=== PATIENT | male | born 1980 | race Caucasian/White ===

== ENCOUNTER 2018-04-23 09:06 | Observation (INO) ==
--- NOTE | 2018-04-23 09:45 | DI ---
EXAM: Chest two view, frontal and lateral views. HISTORY: Chest pain. COMPARISON: None available. FINDINGS: The heart size is normal. There is no pulmonary vascular congestion. The lungs are clear . No pleural effusion or pneumothorax is seen. No acute osseous abnormality identified. Old right fourth rib fracture noted. IMPRESSION: No acute cardiopulmonary process.
--- NOTE | 2018-04-23 10:32 | ED.PDOC ---
General ED Provider: Dr. VIKRAM GLASS Chief Complaint: Respiratory Complaint Stated Complaint: chest pain Time Seen by Physician: 09:07 (nurse present at all times ) Mode of Arrival: Walk-In Information Source: Patient Exam Limitations: No limitations Nursing and Triage Documentation Reviewed and Agree: Yes Does patient meet sepsis criteria?: Yes If yes, has appropriate treatment been initiated?: No System Inflammatory Response Syndrome: Not Applicable Sepsis Protocol: For patient's 13 years and over: Temp is 96.8 and below OR 101 and greater Pulse >90 BPM Resp >20/minute Acutely Altered Mental Status Are patient's symptoms suggestive of a new infection, such as: -Pneumonia -Skin, Soft Tissue -Endocarditis -UTI -Bone, Joint Infection -Implantable Device -Acute Abdominal Infection -Wound Infection -Meningitis -Blood Stream Catheter Infection -Unknown Cardiovascular Complaint Exam - Chest Pain Complaint/Exam Onset: Gradual Duration: 4 hours ago, Symptoms Are: Resolved Timing: Intermittent Length of Chest Pain Episodes: 1 hr Initial Severity: Mild Current Severity: Mild Location: Reports: Midsternal Pain Radiates: Reports: None Character: Reports: Aching Aggravating: Reports: None Alleviating: Reports: None Associated Signs and Symptoms: Denies: Diaphoresis, Nausea, Vomiting, Fever, Palpitations, Cough, Hemoptysis, Back pain, Abdominal pain, Dizziness, Short of air, Calf pain, Calf swelling Related History: Reports: Similar episode Related Surgical History: Reports: None History of Healthcare-Acquired Pneumonia: Reports: No AMI/ACS Risk Factors: Reports: None TAD Risk Factors: Reports: None Pulmonary Embolism Risk Factors: Reports: None Prior Care for this Complaint: No Recent Stress Test: No Recent Echo/LV Function: No JVD Present: No Subcutaneous Emphysema Present: No Diminshed Breath Sounds: No Reproducible Chest Wall Pain: No Bilateral Pulses Present: No (chews tobacco) If Risk Factors for AMI/ACS Consider: EKG, Cardiac Enzymes Documents Reviewed: Labs, EKG Care and Dx Studies Discussed With: PCP Differential Diagnoses: Acute TX (pain is different from GERD PAIN) Quality Indicators For Acute TX or Cardiac Chest Pain: EKG in 10min. Review of Systems - Review Of Systems Constitutional: Reports: No symptoms Eyes: Reports: No symptoms Ears, Nose, Mouth, Throat: Reports: No symptoms Respiratory: Reports: No symptoms Cardiac: Reports: Chest pain GI: Reports: No symptoms : Reports: No symptoms Musculoskeletal: Reports: No symptoms Skin: Reports: No symptoms Neurological: Reports: No symptoms Endocrine: Reports: No symptoms Hematologic/Lymphatic: Reports: No symptoms All Other Systems: Reviewed and Negative Past Medical History - Past Medical History Previously Healthy: Yes Endocrine: Reports: None Cardiovascular: Reports: None Respiratory: Reports: None Hematological: Reports: None Gastrointestinal: Reports: None Genitourinary: Reports: None Neuro/Psych: Reports: None Musculoskeletal: Reports: None Cancer: Reports: None - Surgical History General Surgical History: Reports: None - Family History Family History: Reports: None - Social History Smoking Status: Chews tobacco Hx Substance Use: No Alcohol Screening: Occasionally Physical Exam - Physical Exam Appearance: Well-appearing, No pain distress, Well-nourished Eyes: HEAVENLY, EOMI, Conjunctiva clear ENT: Ears normal, Nose normal, Oropharynx normal Respiratory: Airway patent, Breath sounds clear, Breath sounds equal, Respirations nonlabored Cardiovascular: RRR, Pulses normal, No rub, No murmur GI/: Soft, Nontender, No masses, Bowel sounds normal, No Organomegaly Musculoskeletal: Normal strength, ROM intact, No edema, No calf tenderness Skin: Warm, Dry, Normal color Neurological: Sensation intact, Motor intact, Reflexes intact, Cranial nerves intact, Alert, Oriented Psychiatric: Affect appropriate, Mood appropriate Physician Notification - Case Discussed Physician Notified: RAULITO Time of Notification: 10:34 Admit To: Inpatient Critical Care Note - Critical Care Note Total Time (mins): 0 Course - Course Hematology/Chemistry: 04/23/18 09:20 04/23/18 09:20 Orders, Labs, Meds: Lab Review 04/23/18 04/23/18 04/23/18 09:20 09:20 09:20 WBC 5.79 RBC 5.20 Hgb 15.0 Hct 43.9 MCV 84.4 MCH 28.8 MCHC 34.2 RDW Coeff of [place] 12.3 Plt Count 199 Immature Gran % (Auto) 0.2 Neut % (Auto) 60.9 Lymph % (Auto) 28.5 [place] % (Auto) 8.6 Eos % (Auto) 0.9 Baso % (Auto) 0.9 Immature Gran # (Auto) 0.0 Neut # (Auto) 3.5 Lymph # (Auto) 1.7 [place] # (Auto) 0.5 Eos # (Auto) 0.1 Baso # (Auto) 0.1 PT 9.9 INR 0.99 APTT 27.3 Sodium 138 Potassium 4.1 Chloride 107 Carbon Dioxide 24 Anion Gap 11.1 BUN 13 Creatinine 1.12 H Estimated GFR (MDRD) 74.00 BUN/Creatinine Ratio 11.60 Glucose 114 H Hemoglobin A1c Calcium 10.1 Total Bilirubin 0.5 AST 21 ALT 24 Alkaline Phosphatase 57 Total Creatine Kinase 105 Troponin I 0.0170 Total Protein 8.1 Albumin 4.4 Globulin 3.7 Albumin/Globulin Ratio 1.19 Triglycerides Cholesterol LDL Cholesterol, Calc VLDL Cholesterol HDL Cholesterol Cholesterol/HDL Ratio TSH Urine Opiates Screen Ur Oxycodone Screen Urine Methadone Screen Ur Propoxyphene Screen Ur Barbiturates Screen U Tricyclic Antidepress Ur Phencyclidine Scrn Ur Amphetamine Screen U Methamphetamines Scrn U Benzodiazepines Scrn Urine Cocaine Screen U Cannabinoids Screen 04/23/18 04/23/18 04/23/18 09:20 09:20 09:30 WBC RBC Hgb Hct MCV MCH MCHC RDW Coeff of [place] Plt Count Immature Gran % (Auto) Neut % (Auto) Lymph % (Auto) [place] % (Auto) Eos % (Auto) Baso % (Auto) Immature Gran # (Auto) Neut # (Auto) Lymph # (Auto) [place] # (Auto) Eos # (Auto) Baso # (Auto) PT INR APTT Sodium Potassium Chloride Carbon Dioxide Anion Gap BUN Creatinine Estimated GFR (MDRD) BUN/Creatinine Ratio Glucose Hemoglobin A1c 5.0 Calcium Total Bilirubin AST ALT Alkaline Phosphatase Total Creatine Kinase Troponin I Total Protein Albumin Globulin Albumin/Globulin Ratio Triglycerides 61 Cholesterol 190 LDL Cholesterol, Calc 131 VLDL Cholesterol 12 HDL Cholesterol 47 Cholesterol/HDL Ratio 4.0 L TSH 2.162 Urine Opiates Screen Negative Ur Oxycodone Screen Negative Urine Methadone Screen Negative Ur Propoxyphene Screen Negative Ur Barbiturates Screen Negative U Tricyclic Antidepress Negative Ur Phencyclidine Scrn Negative Ur Amphetamine Screen Negative U Methamphetamines Scrn Negative U Benzodiazepines Scrn Negative Urine Cocaine Screen Negative U Cannabinoids Screen Negative Orders Category Date Time Status EKG-(ED ONLY) Stat CARDIO 04/23/18 09:12 Completed EKG-(IP & OP ONLY) DAILY CARDIO 04/24/18 06:00 Ordered EKG-(IP & OP ONLY) DAILY CARDIO 04/25/18 06:00 Ordered EKG-(IP & OP ONLY) DAILY CARDIO 04/26/18 06:00 Ordered INTAKE & OUTPUT Q8HR CARE 04/23/18 10:36 Active VITAL SIGNS Q8HR CARE 04/23/18 10:36 Active REGULAR DIET DIETARY 04/23/18 Lunch Ordered CBC W/ AUTO DIFF DAILY@0600 LAB 04/24/18 06:00 Ordered CBC W/ AUTO DIFF DAILY@0600 LAB 04/25/18 06:00 Ordered CBC W/ AUTO DIFF Stat LAB 04/23/18 09:20 Completed COMPREHENSIVE METABOLIC PANEL DAILY@0600 LAB 04/24/18 06:00 Ordered COMPREHENSIVE METABOLIC PANEL DAILY@0600 LAB 04/25/18 06:00 Ordered COMPREHENSIVE METABOLIC PANEL Stat LAB 04/23/18 09:20 Completed CREATINE KINASE Q8H LAB 04/23/18 16:45 Ordered CREATINE KINASE Q8H LAB 04/24/18 00:45 Ordered CREATINE KINASE Stat LAB 04/23/18 09:20 Completed PARTIAL THROMBOPLASTIN TIME Stat LAB 04/23/18 09:20 Completed PT WITH INR Stat LAB 04/23/18 09:20 Completed TROPONIN I Q8H LAB 04/23/18 16:45 Ordered TROPONIN I Q8H LAB 04/24/18 00:45 Ordered TROPONIN I Stat LAB 04/23/18 09:20 Completed URINE DRUG SCREEN (RAPID FOR ED) [DRUG SCREEN, URINE, LAB 04/23/18 09:30 Completed RAPID] Stat Sodium Chloride 0.9% [Sodium Chloride] 1,000 ml MEDS 04/23/18 11:00 Discontinued IV 75 mls/hr CHEST, 2 VIEWS PA & LAT Stat RADS 04/23/18 09:19 Completed Medications Generic Name Dose Route Start Last Admin Trade Name Freq PRN Reason Stop Dose Admin Sodium Chloride 1,000 mls @ 50 mls/hr 04/23/18 13:00 04/23/18 14:42 Sodium Chloride IV 50 mls/hr .Q20H NICHOLE Administration Pantoprazole Sodium 40 mg 04/23/18 12:56 04/23/18 14:42 Protonix PO 40 mg QDAC NICHOLE Administration Sucralfate 1 gm 04/23/18 17:00 Carafate PO ACHS NICHOLE Discontinued Medications Generic Name Dose Route Start Last Admin Trade Name Freq PRN Reason Stop Dose Admin Sodium Chloride 1,000 mls @ 75 mls/hr 04/23/18 11:00 04/23/18 14:42 Sodium Chloride IV Not Given .[id number] NICHOLE Vital Signs: Temp Pulse Resp BP Pulse Ox 04/23/18 09:07 98.2 F 92 H 18 157/93 H 98 CONNOR Risk Score CONNOR Risk Score: Risk Score Odds of by 30D 0 0.1 (0.1-0.2) 1 0.3 (0.2-0.3) 2 0.4 (0.3-0.5) 3 0.7 (0.6-0.9) 4 1.2 (1.0-1.5) 5 2.2 (1.9-2.6) 6 3.0 (2.5-3.6) 7 4.8 (3.8-6.1) Departure - Departure Time of Disposition: 10:33 Disposition: ADMITTED INPATIENT Discharge Problem: Chest pain Qualifiers: Chest pain type: unspecified Qualified Code(s): R07.9 - Chest pain, unspecified Condition: Good Pt referred to PMD for follow-up: Yes IPMP verified?: No Allergies/Adverse Reactions: Allergies amoxicillin Adverse Reaction (Verified 04/23/18 09:16) Home Medications: Ambulatory Orders 1 [No Reported Medications] 04/23/18 Disposition Discussed With: Patient
[2018-04-23] MEDS ORDERED: SODIUM CHLORIDE 1,000 ML IV SCH (11:00)
[2018-04-23 11:53] VITALS: BMI 28.1
[2018-04-23] MEDS: PROTONIX PO SCH (14:42)
[2018-04-23] MEDS: SODIUM CHLORIDE 1,000 ML IV SCH (14:42)
--- NOTE | 2018-04-23 14:52 | STRESSECHO ---
Date of Test: 04/23/18 Ordering Physician: DR. 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, HX HEART MURMUR CHILD Height: 67" Weight: 180 LBS Current Medications: NO MEDICATIONS Physical Findings: S1, S2, NO S3 Resting EKG: SINUS RHYTHM / NO ACUTE CHANGES Target Heart Rate: 155/183 S-T SEGMENT STAGE MPH/GRADE HEART RATE BPM BLOOD PRESSURE MMHG RHYTHM +/- ELEVATION DEPRESSION SYMPTOMS,COMMENTS AT REST 75 138/84 SR X NONE 1 1.7/10% 100 158/72 SR X NONE 2 2.5/12% 114 160/72 SR X NONE 3 3.4/14% 146 166/76 SR X NONE 4 4.2/16% 5 5.0/18% Immediately After 156 SR X FATIGUE Minutes Post Exercise 5:00 85 140/88 SR X NO COMMENTS Minutes Post Exercise DURATION OF EXERCISE: 9:37 MAXIMUM HEART RATE REACHED: 156 REASON FOR TERMINATION: FATIGUE 98% OXYGEN SATURATION WITH EXERCISE ON ROOM AIR METS 12.0 INTERPRETATION: 1. NO EVIDENCE OF ISCHEMIA BY ST-T WAVE 2. NO CHEST PAIN OR CHEST DISCOMFORT 3. BLOOD PRESSURE RESPONSE: NORMAL AT REST AND WITH EXERCISE 4. NO ARRHYTHMIAS GOOD EXERCISE TOLERANCE NORMAL LEFT VENTRICULAR CONTRACTILITY--RESTING AND POST EXERCISE MTDD
--- NOTE | 2018-04-23 14:56 | ECHOSTRESS ---
Date of Exam: 04/23/18 Ordering Physician: DR. DEMARCO CABEZAS Reason for Echo: CHEST PAIN, STRESS TEST--NO ISCHEMIA M-Mode Normal Adult Results LV Dimensions Normal Adult Results AoV Opening excursions >1.6 LVEDD-base- 3.5-5.8 Ao root dimensions 2.0-3.7 LVESD-base- 3.1-4.6 L. Atrium dimensions 1.9-3.8 Post. Wall thickness 0.8-1.1 IV septum (thickness) 0.7-1.2 Post. Wall excursion 0.72-1.3 Septal motion Systolic motion R. Ventricular cavity 1.5-2.0 LVEF 60% Paradoxical septal wall motion 2-D: NORMAL LEFT VENTRICULAR CONTRACTILITY--RESTING AND POST EXERCISE M-MODE: MV: AV: TV: PV: CHAMBER SIZE: WALL MOTION: NORMAL LEFT VENTRICULAR CONTRACTILITY--RESTING AND POST EXERCISE PERICARDIUM: INTERPRETATION: 1. NORMAL LEFT VENTRICULAR CONTRACTILITY--RESTING AND POST EXERCISE MTDD
[2018-04-23] MEDS: CARAFATE PO SCH ×2 (17:09→20:46)
[2018-04-24] MEDS: PROTONIX PO SCH (06:39)
[2018-04-24] MEDS: CARAFATE PO SCH ×2 (06:39→11:46)
[2018-04-24] MEDS: SODIUM CHLORIDE 1,000 ML IV SCH ×2 (10:10)
[2018-04-24 15:21] VITALS: BP 119/67; TEMP 98.4
--- NOTE | 2018-04-24 16:35 | PCM.HOSP ---
- Observation Care Discharge [id number] OBS Care Discharge (15581): 04/24 - Initial Observation Care [id number] High Complexity 70 Minutes (84939): 04/23
--- NOTE | 2018-04-26 14:57 | HP ---
DATE OF SERVICE: 04/23/18 CHIEF COMPLAINT: Chest pain. HISTORY OF PRESENT ILLNESS: This is a 37-year-old male who woke up in the middle of the night on 04/23 with chest pain, midsternal, heaviness, having some fast heartbeats and sweating. He was worried about it. He chews tobacco. He has a strong family history with mother dying at age 57 with coronary artery disease, sudden cardiac . He came to the emergency room and was seen by the ER physician. EKG was normal sinus. First set of cardiac enzymes negative. In view of the patient's high risk for coronary artery disease, the patient was admitted for observation to rule out acute coronary syndrome. REVIEW OF SYSTEMS: CONSTITUTIONAL: No fever, no chills. HEENT: Normal. ENDOCRINE: No weight gain; no weight loss. CVS: Chest pain. No PND, no orthopnea. No shortness of breath. No PND, no orthopnea. RESPIRATORY: No cough, no congestion. No hemoptysis. GI: Right upper quadrant pain. Nausea. No melena. : No hematuria. No polyuria. MUSCULOSKELETAL: Back pain. PSYCHIATRIC: Not anxious. No depression. No suicidal thoughts. No homicidal thoughts. SKIN: Intact, no open lesions. PAST MEDICAL HISTORY: Heart murmur History of pneumonia in 2017 GERD Chews tobacco PAST SURGICAL HISTORY: Skin graft as a child PERSONAL HISTORY: . Chews tobacco. No illicit drug use. FAMILY HISTORY: History of CA and diabetes MEDICATIONS: (HOME) None ALLERGIES: AMOXICILLIN PHYSICAL EXAMINATION: V/S: BP 105/61, respiratory rate 18, heart rate 65, temperature 97.7, saturation 98. HEENT: Atraumatic, normocephalic. No scleral icterus. Mucosa dry. NECK: Supple. No JVD, no bruit. No lymphadenopathy. No thyromegaly. HEART: S1, S2 normal. No murmur. No cyanosis or clubbing. No ascites. LUNGS: Clear to auscultation. No rales or rhonchi. ABDOMEN: Epigastric and right upper quadrant pain. Bowel sounds are active. No CVA tenderness. No rigidity or guarding. EXTREMITIES: No pedal edema. No cyanosis or clubbing MUSCULOSKELETAL: Normal joints, no swelling. NEUROLOGIC: The patient is awake and alert. SKIN: Intact; no open lesions. LYMPHATIC: No lymph nodes palpable. LABS: White count 5.79, hemoglobin 15.8, hematocrit 45.9, platelet count 199. Sodium 138, potassium 4.9, chloride 107, bicarb 24, BUN 13, creatinine 1.12, glucose 114. ASSESSMENT: 1. CHEST PAIN, RULE OUT ACS 2. ACID REFLUX 3. STRONG FAMILY HISTORY OF CORONARY ARTERY DISEASE PLAN: 1. Admit patient to observation. 2. Stress echo. 3. Echocardiogram. 4. TSH and lipids. 5. Will follow the patient in daily rounds. 6. Protonix. TIME SPENT: MORE THAN 65 minutes MTDD
--- NOTE | 2018-04-29 13:20 | DS ---
DATE OF SERVICE: 04/24/18 FINAL DIAGNOSIS: 1. Chest pain noncardiac 2. Right upper quadrant pain, will evaluate the gallbladder as outpatient 3. History of GERD 4. Family history of coronary artery disease, mother at age 57 DISCHARGE INSTRUCTIONS: Discharge the patient home. Followup with PMD. Lifestyle modification and diet discussed. MEDICATIONS AT DISCHARGE: None NEW PRESCRIPTIONS: None DIET INSTRUCTIONS: Cardiac and healthy ACTIVITY: As much as tolerated. DISEASE SPECIFIC EDUCATION: Chest pain Coronary artery disease Acid reflux Right upper quadrant pain and need for further evaluation for the gallbladder been discussed. HOSPITAL COURSE: The patient was admitted with the chest pain and severe family history. Cardiac enzymes were negative. Dr. Godfrey was courteous to do the stress test and echocardiogram which both were negative. We started the patient on Protonix and Carafate. Still had some sharp shooting pain on the right upper quadrant two times otherwise the rest of the cardiac enzymes were negative. As the patient been doing fine and did not have any complications during the hospital stay the patient being discharged home and we will be doing the outpatient ultrasound of the gallbladder. The patient will be followed by PMD as scheduled. TIME SPENT: MORE THAN 65 MINUTES MTDD
== END 2018-04-24 16:15 | disposition home or self-care (01) ==
LOC: ED 09:06 → MEDSURG A 10:41 → INTOOBSV 10:41
PROVIDERS: ADMIT Emergency Medicine; ATTEND Emergency Medicine
DX: R07.9 Chest pain, unspecified (principal); R10.11 Right upper quadrant pain; K21.9 Gastro-esophageal reflux disease without esophagitis
CPT/HCPCS: 36415; 80053; 80061; 80306; 82550; 83036; 84443; 84484; 85025; 85610; 85730; 93005; 93010; 99217; 99220; 99284

== ENCOUNTER 2018-04-27 07:28 | Outpatient (CLI) ==
--- NOTE | 2018-04-27 08:59 | US ---
EXAM: Ultrasound abdomen limited. HISTORY: Right upper quadrant pain. COMPARISON: None available. TECHNIQUE: Abdominal, real time with image documentation: limited (eg, single organ, quadrant, foll ow-up) FINDINGS: The liver demonstrates increased parenchymal echogenicity with coarsening of the echotextu re pattern. There is no intrahepatic biliary dilatation. Portal venous flow is normal in direction. The gallbladder is without shadowing stones, wall thickening or pericholecystic fluid. Common duct measures approximately 0.4 cm. Visualized portions of the pancreas are unremarkable. IMPRESSION: Fatty infiltration of the liver.
== END 2018-04-27 07:29 | disposition home or self-care (01) ==
LOC: RAD 07:28
PROVIDERS: ATTEND Emergency Medicine
DX: R10.11 Right upper quadrant pain (principal)

== ENCOUNTER 2018-05-17 08:14 | Outpatient (CLI) ==
--- NOTE | 2018-05-17 12:15 | NM ---
Exam: Hepatobiliary scan. Date: 05/17/2018. Comparison: None. HISTORY: Right upper quadrant pain. TECHNIQUE: The patient was injected with 5.3 mCi of technetium 99m Choletec and imaging over the abd omen was obtained for 1 hour. The patient was then given 8 ounces of Boost and imaging carried out f or additional 60 minutes. There were no patient complains following administration of Boost. A gallb ladder ejection fraction was calculated. FINDINGS: There is prompt uptake extraction and excretion of the radiotracer by the hepatocytes. Ac tivity is identified in the gallbladder beginning at 10 minutes and is seen in the small bowel at 15 minutes. The ejection fraction is estimated at 77%. Impression: Normal hepatobiliary scan and gallbladder ejection fraction.
== END 2018-05-17 08:15 | disposition home or self-care (01) ==
LOC: RAD 08:14
PROVIDERS: ATTEND Family Medicine
DX: R10.11 Right upper quadrant pain (principal)